=== PATIENT | female | born 1960 | race Caucasian/White ===

== ENCOUNTER → 2019-01-24 | Outpatient (CLI) | payer OTHER ==
--- NOTE | 2019-01-24 13:07 | PCVCIMAG ---
APPROVED REPORT Study performed: 01/24/2019 11:25:17 Exam: Stress Echocardiogram Indication: Chest pain,L arm pain Patient Location: Echo lab Stress Nurse: Carlee Vargas RN Room #: 2 Status: routine Ht: 5 ft 2 in HR: 86 bpm BP: 110/64 mmHg Rhythm: NSR Medical History Medical History: CAD s/p stent,CO, Isch CM Cardiac Risk Factors: HTN, Hyperlipidemia, Tobacco History (Current/Recent) Previous Cardiac Procedures: PCI,Myocardial infarction Pretest Chest Pain Characteristics: Non-exertional Chest pain Exercise History: Indeterminate Procedure The patient underwent an Exercise Stress Test using the Edward Protocol. Blood pressure, heart rate, and EKG were monitored. An Echocardiogram was performed by analytical technician in four stages in quad fashion. At peak stress, four selected images were obtained and placed side by side with resting images for comparison. Stress Test Details Stress Test: Exercise stress testing was performed using a Edward protocol. HR Resting HR: 86 bpmMax Heart Rate (APMHR): 164 bpm Max HR Achieved: 144 bpmTarget HR (85% APMHR): 139 bpm % of APMHR: 87 Recovery HR: 106 bpm HR response to stress: Normal HR response to stress BP Resting BP: 110/64 mmHg Max BP: 170/60 mmHg Recovery BP: 100/64 mmHg BP response to stress: Normal blood pressure response to stress. ECG Resting ECG: Sinus Rhythm Stress ECG: Sinus Rhythm ST Change: Non-ischemic Maximum ST Deviation: 0.80 mm Arrhythmia: Rare PACs Recovery ECG: Sinus Rhythm Recovery ST Change: Non-ischemic Recovery ST Deviation: 0.40 mm Recovery Arrhythmia: None Clinical Reason for Termination: Maximal effort Stress Symptoms: Chest pain at rest ,unchanged with exertion Exercise duration: 9 min 00 sec Highest Stage Achieved: Stage 3: 3.4 mph at 14% grade. Exercise capacity: 10.1 METs Overall Exercise Capacity for Age: Good Scale: Active Angina Score: None No complications. Stress ECG Conclusion The patient exercised according to the EDWARD protocol for 9:00 mins; achieving a work level of 10.1 METS. The resting heart rate of 86 bpm sisi to a maximum heart rate of 144 bpm. This value represent 87% of the maximal, age-predicted heart rate. The resting blood pressure of 110/64 mmHg, sisi to a maximum blood pressure of 170/60 mmHg. The exercise test was stopped due to fatigue . Navarrete Treadmill Score is 5.0 which is Low risk. Pre-Stress Echo The resting Echocardiogram showed abnormal left ventricular contractility with an estimated Ejection Fraction of about 45-50%. Severe hypokinesis of the mid-distal anteroseptal wall and apex consistent with known old damage. Post-Stress Echo The stress Echocardiogram showed improved left ventricular contractility with an estimated Ejection Fraction of about 50-55%. No new wall motion abnormality is seen. No change in anteroseptal wall Conclusion Clinical Response: Non-ischemic Exercise Capacity: Average Stress ECG Response: Non-ischemic Stress Echo Images: Non-ischemic No clinical, EKG or echocardiographic evidence for ischemia. No echocardiographic evidence for exercise induced ischemia. Normal stress echocardiogram with maximal exercise stress. <Conclusion> No clinical, EKG or echocardiographic evidence for ischemia. No echocardiographic evidence for exercise induced ischemia. Normal stress echocardiogram with maximal exercise stress.
== END | disposition home or self-care (01) ==
LOC: PCVCIMAG 11:15
PROVIDERS: ATTEND Internal Medicine Cardiovascular Disease
DX: I25.10 Atherosclerotic heart disease of native coronary artery without angina pectoris (principal); R07.9 Chest pain, unspecified; I42.9 Cardiomyopathy, unspecified; F17.200 Nicotine dependence, unspecified, uncomplicated
CPT/HCPCS: 93325; 93351